=== PATIENT | female | born 1955 | race Caucasian/White ===

== ENCOUNTER 2017-06-22 09:51 | Outpatient (CLI) | payer BC, OTHER ==
--- NOTE | 2017-06-22 13:05 | XRAY Report ---
RIGHT ANKLE: 06/22/2017 COMPARISON: None. INDICATION: Sharp ankle pain. TECHNIQUE: Three views of the right ankle. FINDINGS: Normal alignment. No evidence of acute fracture. There are [id number] degenerative changes of the medial tibiotalar joint. There are moderate hypertrophic changes of the talonavicular joint. There is a moderate calcaneal spur at the insertion of the plantar fascia. There is a small calcaneal spur at the insertion of the Achilles tendon. IMPRESSION: MODERATE OSTEOARTHRITIS. MODERATE CALCANEAL ENTHESOPHYTE. :9 JOB #: [id number] EXT JOB #: [id number] [id number]
== END 2017-06-22 09:52 | disposition home or self-care (01) ==
LOC: DI 09:51
PROVIDERS: ATTEND Podiatrist
DX: M19.071 Primary osteoarthritis, right ankle and foot (principal); M77.31 Calcaneal spur, right foot